=== PATIENT | male | born 1985 | race Caucasian/White ===

== ENCOUNTER 2021-04-26 05:55 | Emergency (ER) | payer OTHER ==
[~2021-04-26] VITALS: Ht 177.8 cm; Wt 81.6 kg
[~2021-04-26 05:55] MED LIST: CLIN300C2 PO
[2021-04-26 06:00] VITALS: BP 128/78
[2021-04-26] MEDS ORDERED: HYDROcodone/APAP 5/325 MG 1 TAB TAB PO ONE (07:15)
[2021-04-26] MEDS ORDERED: ONDANSETRON 4 MG ODT PO ONE (07:15)
[2021-04-26] MEDS ORDERED: ONDA-24 PO (07:17)
[2021-04-26] MEDS ORDERED: ACET-8386 PO (07:17)
[2021-04-26 07:30] VITALS: BP 128/78
== END 2021-04-26 07:30 | disposition home or self-care (01) ==
LOC: MED 05:55
DX: G89.18 Other acute postprocedural pain (principal); L02.31 Cutaneous abscess of buttock; Z79.899 Other long term (current) drug therapy
CPT/HCPCS: 99283; Q0162